=== PATIENT | female | born 1955 | race Two or more races ===

== ENCOUNTER 2025-04-20 15:30 | Inpatient (IN) | payer MEDICARE, OTHER ==
[~2025-04-20] VITALS: Ht 165.1 cm; Wt 121.8 kg
[2025-04-20 16:12] LABS: BASOPHILS # (AUTO) 0.1 K/UL (0.0-0.2); BASOPHILS % (AUTO) 0.7 % (0.0-2.0); EOSINOPHILS # (AUTO) 0.1 K/uL (0.0-0.7); EOSINOPHILS % (AUTO) 0.8 % (0.0-7.0); HEMATOCRIT 35.6 % (31.2-41.9); HEMOGLOBIN 11.9 g/dL (10.9-14.3); LYMPHOCYTES # (AUTO) 1.9 K/uL (0.8-4.8); MEAN CORPUSCULAR HGB CONC 34 g/dL (32.3-35.6); MEAN CORPUSCULAR VOLUME 95.2 fL (75.5-95.3); MONOCYTES # (AUTO) 0.5 K/uL (0.1-1.30); NEUTROPHILS # (AUTO) 7.5 K/uL (1.8-8.9); NEUTROPHILS % (AUTO) 74.5 % (38.5-71.5); PLATELET COUNT (AUTO) 256 K/uL (179-408); RED BLOOD CELL COUNT(AUTO) 3.74 MIL/uL (3.63-4.92); RED CELL DISTRIBUTION WIDTH 15.3 % (12.3-17.7); WHITE BLOOD COUNT (AUTO) 10.1 K/uL (3.8-11.8)
[2025-04-20 16:14] LABS: DIFFERENTIAL COMMENT 1
[2025-04-20 16:16] LABS: CALCIUM 8.6 mg/dL (8.5-10.1); CARBON DIOXIDE 23 mmol/L (21-32); CHLORIDE 99 mmol/L (98-107); CREATININE 3.6 mg/dL (0.6-1.3); GLUCOSE 199 mg/dL (74-106); POTASSIUM 3.6 mmol/L (3.5-5.1); SODIUM SERUM 135 mmol/L (136-145); UREA NITROGEN, BLOOD 19 mg/dL (7-18)
[2025-04-20 16:19] LABS: *BILIRUBIN,URIN 1+ (NEGATIVE); *BLOOD, URINE 3+ (NEGATIVE); *COLOR,URINE YELLOW (YELLOW); *KETONES,URINE 1+ (NEGATIVE); *PROTEIN,URINE 3+ (NEGATIVE); *UROBILINOGEN,URINE 0.2 E.U./dl (NORMAL); LEUKOCYTE ESTERASE ,URINE 3+ (NEGATIVE); NITRITE, URINE NEGATIVE (NEGATIVE); UGLUCOSE NEGATIVE (NEGATIVE)
[2025-04-20 16:20] LABS: *CLARITY,URINE TURBID (CLEAR)
[2025-04-20 16:22] LABS: ALANINE AMINOTRANSFERASE 7 U/L (14-59); ALBUMIN 2.7 g/dL (3.4-5.0); ALKALINE PHOSPHATASE 112 U/L (50-136); ASPARTATE AMINOTRANSFERASE 17 U/L (15-37); BILIRUBIN,DIRECT 0.1 mg/dL (0.0-0.2); BILIRUBIN,TOTAL 0.2 mg/dL (0.2-1.0); LIPASE 31 U/L (16-77); TOTAL PROTEIN, SERUM 6.9 g/dL (6.4-8.2)
[2025-04-20] MEDS ORDERED: INSU100I26 SQ (16:45)
[2025-04-20] MEDS ORDERED: CRAN425C6 PO (16:45)
[2025-04-20] MEDS ORDERED: FERR220S16 PO (16:45)
[2025-04-20] MEDS ORDERED: LORA5SOL38 PO (16:45)
[2025-04-20] MEDS ORDERED: AMLO2.5T4 PO (16:45)
[2025-04-20] MEDS ORDERED: DIPH25TA27 PO (16:45)
[2025-04-20] MEDS ORDERED: LOPE2TAB25 PO (16:45)
[2025-04-20] MEDS ORDERED: FOLI1TAB27 PO (16:45)
[2025-04-20] MEDS ORDERED: OMEG100036 PO (16:45)
[2025-04-20] MEDS ORDERED: ASPI81TA31 PO (16:45)
[2025-04-20] MEDS ORDERED: MIDO2.5T PO (16:45)
[2025-04-20] MEDS ORDERED: CALC0.253 PO (16:45)
[2025-04-20] MEDS ORDERED: HEPA500034 SUBCUT (16:45)
[2025-04-20] MEDS ORDERED: ONDANSETRON 4 MG/2 ML VIAL ONE ×2 (16:46→18:33)
[2025-04-20 16:47] LABS: BACTERIA,URINE MANY /HPF (NONE SEEN); WBC,URINE TNTC /HPF (0-3)
[2025-04-20] MEDS ORDERED: HYDROMORPHONE 1 MG/1 ML DISP.SYRIN ONE (16:47)
[2025-04-20 16:48] LABS: SQUAMOUS EPITHELIAL CELL,UR FEW /HPF (NONE SEEN)
[2025-04-20] MEDS: HYDROMORPHONE 1 MG/1 ML DISP.SYRIN IV ONE (16:50)
[2025-04-20] MEDS: ONDANSETRON 4 MG/2 ML VIAL IV ONE ×2 (16:50→18:33)
[2025-04-20] MEDS ORDERED: ONDA4TAB5 PO (17:42)
[2025-04-20] MEDS ORDERED: TRAZ-182 PO (17:42)
[2025-04-20] MEDS ORDERED: CINA30TA2 PO (17:42)
[2025-04-20] MEDS ORDERED: SEVE800T8 PO (17:42)
[2025-04-20] MEDS ORDERED: NITR0.4T48 SL (17:42)
[2025-04-20] MEDS ORDERED: INSU100V SUBCUT ×2 (17:42)
[2025-04-20] MEDS ORDERED: PHEN-704 PO (17:42)
[2025-04-20] MEDS ORDERED: PANT20TA2 PO (17:42)
[2025-04-20] MEDS ORDERED: MAG30ORA PO (17:42)
[2025-04-20] MEDS ORDERED: FOLI0.8T23 PO (17:42)
[2025-04-20] MEDS ORDERED: AMIN30LI2 PO (17:42)
[2025-04-20] MEDS ORDERED: CEFTRIAXONE /D5W 50ML IVPB **ER PYXIS IV ONE (18:36)
[2025-04-20] MEDS: CEFTRIAXONE 1 G in IV DEXTROSE 5% 50 ML IV ONE (18:42)
[2025-04-20] MEDS ORDERED: DEXTROSE 50% 50 ML DISP.SYRIN IV PRN (20:15)
[2025-04-20 21:45] VITALS: BP 112/44; TEMP 97.9; O2SAT 95
[2025-04-20] MEDS: ONDANSETRON 4 MG/2 ML VIAL IV PRN (21:48)
[2025-04-20] MEDS: HYDROMORPHONE 1 MG/1 ML DISP.SYRIN IV PRN (21:49)
[2025-04-20] MEDS: HEPARIN SODIUM,PORCINE 5,000 UNITS/ML VIAL SQ SCH (21:51)
[2025-04-20] MEDS: PANTOPRAZOLE SODIUM 40 MG VIAL IV SCH (22:08)
[2025-04-20] MEDS: IV D5/ 0.9% NACL 1,000 ML IV PRN (22:17)
[2025-04-21] VITALS (7 sets, daily range): BP systolic 90–126; BP diastolic 33–63; TEMP 97–98.3; O2SAT 95–98
[2025-04-21] MEDS: BLOOD SUGAR DIAGNOSTIC 1 EACH STRIP VI SCH ×2 (00:28→11:50)
[2025-04-21] MEDS: INSULIN REGULAR, HUMAN 1000 UNIT/10 ML VIAL SQ PRN ×2 (00:39→11:45)
[2025-04-21] MEDS: HYDROMORPHONE 1 MG/1 ML DISP.SYRIN IVP ONE (00:59)
[2025-04-21 06:47] LABS: BASOPHILS % (AUTO) 0.4 % (0.0-2.0); EOSINOPHILS # (AUTO) 0.1 K/uL (0.0-0.7); EOSINOPHILS % (AUTO) 1.1 % (0.0-7.0); HEMATOCRIT 34.8 % (31.2-41.9); HEMOGLOBIN 11.7 g/dL (10.9-14.3); LYMPHOCYTES # (AUTO) 1.7 K/uL (0.8-4.8); LYMPHOCYTES % (AUTO) 21.9 % (20.5-51.5); MEAN CORPUSCULAR HEMOGLOBIN 32.9 uug (24.7-32.8); MEAN CORPUSCULAR HGB CONC 34 g/dL (32.3-35.6); MONOCYTES # (AUTO) 0.5 K/uL (0.1-1.30); MONOCYTES % (AUTO) 6.4 % (0.0-11.0); NEUTROPHILS # (AUTO) 5.6 K/uL (1.8-8.9); NEUTROPHILS % (AUTO) 70.2 % (38.5-71.5); PLATELET COUNT (AUTO) 249 K/uL (179-408); RED BLOOD CELL COUNT(AUTO) 3.55 MIL/uL (3.63-4.92); RED CELL DISTRIBUTION WIDTH 15.3 % (12.3-17.7)
[2025-04-21 07:00] LABS: DIFFERENTIAL COMMENT 1
[2025-04-21 07:02] LABS: CALCIUM 8.3 mg/dL (8.5-10.1); CARBON DIOXIDE 26 mmol/L (21-32); CHLORIDE 99 mmol/L (98-107); GLUCOSE 187 mg/dL (74-106); MAGNESIUM 2.1 mg/dL (1.8-2.4); PHOSPHOROUS 4.6 mg/dL (2.5-4.9); SODIUM SERUM 136 mmol/L (136-145); UREA NITROGEN, BLOOD 23 mg/dL (7-18)
[2025-04-21] MEDS ORDERED: MIDODRINE HCL 2.5 MG TABLET PO PRN (09:00)
[2025-04-21] MEDS ORDERED: diphenhydrAMINE 25 MG CAP PO PRN (09:15)
[2025-04-21] MEDS ORDERED: HOME MED MISCELLANEOUS XX SCH ×2 (09:15)
[2025-04-21] MEDS ORDERED: NITROGLYCERIN 0.4 MG/TAB BOTTLE SL PRN (09:15)
[2025-04-21] MEDS ORDERED: LOPERAMIDE HCL 2 MG CAPSULE PO PRN (09:15)
[2025-04-21] MEDS ORDERED: DEXTROSE 50% 50 ML DISP.SYRIN IV PRN (09:30)
[2025-04-21] MEDS: METOCLOPRAMIDE HCL 10 MG/2 ML VIAL IV PRN (09:31)
[2025-04-21] MEDS ORDERED: FERR-56 PO (09:45)
[2025-04-21] MEDS: PHENAZOPYRIDINE HCL 100 MG TABLET PO PRN (11:56)
[2025-04-21] MEDS: ONDANSETRON HCL 4 MG TABLET PO PRN (12:08)
[2025-04-21] MEDS: SEVELAMER CARBONATE 800 MG TABLET PO SCH (12:08)
[2025-04-21] MEDS: FOLIC ACID/VITAMIN B COMP W-C TABLET PO SCH (12:09)
[2025-04-21] MEDS: ASPIRIN 81 MG TAB.CHEW PO SCH (12:09)
[2025-04-21] MEDS: FERROUS SULFATE 325 MG TABEC PO SCH (12:09)
[2025-04-21] MEDS: FOLIC ACID 1 MG TABLET PO SCH (12:10)
[2025-04-21] MEDS: PROTEIN SUPPLEMENT (PROSTAT) 30 ML LIQUID PO SCH (12:35)
[2025-04-21] MEDS: CEFTRIAXONE 1 G in IV DEXTROSE 5% 50 ML IV SCH (17:33)
[2025-04-21] MEDS: OXYCODONE/APAP 5-325 MG TABLET PO ONE (22:19)
[2025-04-22 06:03] VITALS: BP 98/42; TEMP 97.9; O2SAT 98
[2025-04-22] MEDS: PANTOPRAZOLE SODIUM 40 MG TABLET.DR PO SCH (06:36)
[2025-04-22 07:34] VITALS: BP 90/30; TEMP 98.1; O2SAT 97
[2025-04-22] MEDS: MIDODRINE HCL 5 MG TABLET PO PRN (08:26)
[2025-04-22] MEDS: LORATADINE 10 MG TABLET PO SCH (08:26)
[2025-04-22] MEDS: AMLODIPINE 2.5 MG TABLET PO SCH (08:28)
[2025-04-22] MEDS ORDERED: INSULIN REGULAR, HUMAN 1000 UNIT/10 ML VIAL SQ PRN (09:15)
[2025-04-22] MEDS ORDERED: DEXTROSE 50% 50 ML DISP.SYRIN IV PRN ×2 (09:15→10:15)
[2025-04-22] MEDS: CALCITRIOL 0.25 MCG CAPSULE PO SCH (09:18)
[2025-04-22] MEDS: INSULIN GLARGINE,HUM 300 UNITS/3 ML CARTRIDGE SQ SCH (09:21)
[2025-04-22] MEDS: CINACALCET HCL 30 MG TABLET PO SCH (09:22)
[2025-04-22] MEDS ORDERED: BLOOD SUGAR DIAGNOSTIC 1 EACH STRIP VI SCH (11:30)
[2025-04-22 11:35] VITALS: BP 93/45; TEMP 98.6; O2SAT 99
[2025-04-22] MEDS: DOCUSATE SODIUM 100 MG CAPSULE PO SCH (11:45)
[2025-04-22] MEDS: BLOOD SUGAR DIAGNOSTIC 1 EACH STRIP VI SCH (11:48)
[2025-04-22] MEDS: diphenhydrAMINE 25 MG CAP PO PRN (11:51)
[2025-04-22] MEDS: INSULIN REGULAR, HUMAN 1000 UNIT/10 ML VIAL SQ PRN (11:58)
[2025-04-22 16:00] VITALS: BP 92/30; TEMP 98.1; O2SAT 97
[2025-04-22 19:40] VITALS: BP 92/34; TEMP 99; O2SAT 96
[2025-04-22] MEDS: TRAZODONE 50 MG TABLET PO SCH (20:35)
[2025-04-22] MEDS: SENNOSIDES 1 TABLET PO SCH (20:35)
[2025-04-23] VITALS (8 sets, daily range): BP systolic 79–96; BP diastolic 29–61; TEMP 98.3–98.9; O2SAT 92–97
[2025-04-23] MEDS: HYDROMORPHONE 1 MG/1 ML DISP.SYRIN IV PRN (04:15)
[2025-04-23] MEDS: METOCLOPRAMIDE HCL 10 MG TABLET PO PRN (05:33)
[2025-04-23] MEDS ORDERED: MECLIZINE HCL 25 MG TABLET PO PRN (08:15)
[2025-04-23] MEDS: METOCLOPRAMIDE HCL 10 MG/2 ML VIAL IV PRN (08:24)
[2025-04-23] MEDS: REMEDY ESSENTIAL ZINC PASTE 113 GM TP PRN (08:33)
[2025-04-23] MEDS: BISACODYL 10 MG SUPP.RECT RC ONE (09:17)
[2025-04-23] MEDS ORDERED: ACETAMINOPHEN 325 MG TABLET PO PRN (20:30)
[2025-04-24] MEDS ORDERED: MIDODRINE HCL 2.5 MG TABLET PO ONE (01:00)
[2025-04-24] MEDS: MIDODRINE HCL 5 MG TABLET PO ONE (01:32)
[2025-04-24 06:06] VITALS: BP 112/90; TEMP 99.4; O2SAT 96
[2025-04-24 08:00] VITALS: BP 94/37; TEMP 98.7; O2SAT 96
[2025-04-24 11:00] VITALS: BP 89/36; TEMP 98.6; O2SAT 96
[2025-04-24] MEDS: MIDODRINE HCL 2.5 MG TABLET PO SCH (15:41)
[2025-04-24 16:00] VITALS: BP 93/38; TEMP 98; O2SAT 95
[2025-04-24] MEDS ORDERED: AMIKACIN 500 MG in IV DEXTROSE 5% 100 ML IV SCH (16:00)
[2025-04-24] MEDS ORDERED: COLISTIMETHATE SODIUM 150 MG in IV DEXTROSE 5% 100 ML IV SCH (18:00)
[2025-04-24] MEDS: COLISTIMETHATE SODIUM 75 MG in IV DEXTROSE 5% 100 ML IV SCH (18:31)
[2025-04-24 19:40] VITALS: BP 105/88; TEMP 98; O2SAT 97
[2025-04-25 02:08] LABS: HEPATITIS B SURFACE AG Negative (Negative)
[2025-04-25] MEDS ORDERED: PHENAZOPYRIDINE HCL 100 MG TABLET PO PRN (05:45)
[2025-04-25 06:06] VITALS: BP 101/37; TEMP 97.6; O2SAT 96
[2025-04-25 06:57] LABS: BASOPHILS % (AUTO) 0.2 % (0.0-2.0); EOSINOPHILS # (AUTO) 0.9 K/uL (0.0-0.7); EOSINOPHILS % (AUTO) 6.7 % (0.0-7.0); HEMATOCRIT 32.1 % (31.2-41.9); HEMOGLOBIN 10.8 g/dL (10.9-14.3); LYMPHOCYTES # (AUTO) 2.4 K/uL (0.8-4.8); LYMPHOCYTES % (AUTO) 18.8 % (20.5-51.5); MEAN CORPUSCULAR HEMOGLOBIN 32.9 uug (24.7-32.8); MEAN CORPUSCULAR HGB CONC 34 g/dL (32.3-35.6); MEAN CORPUSCULAR VOLUME 97.5 fL (75.5-95.3); MONOCYTES # (AUTO) 0.7 K/uL (0.1-1.30); MONOCYTES % (AUTO) 5.2 % (0.0-11.0); NEUTROPHILS % (AUTO) 69.1 % (38.5-71.5); PLATELET COUNT (AUTO) 223 K/uL (179-408); RED BLOOD CELL COUNT(AUTO) 3.29 MIL/uL (3.63-4.92); RED CELL DISTRIBUTION WIDTH 15.1 % (12.3-17.7)
[2025-04-25 07:07] LABS: CALCIUM 7.6 mg/dL (8.5-10.1); CARBON DIOXIDE 24 mmol/L (21-32); CHLORIDE 94 mmol/L (98-107); CREATININE 5.7 mg/dL (0.6-1.3); DIFFERENTIAL COMMENT 1; GLUCOSE 88 mg/dL (74-106); MAGNESIUM 1.7 mg/dL (1.8-2.4); PHOSPHOROUS 3.5 mg/dL (2.5-4.9); POTASSIUM 4.2 mmol/L (3.5-5.1); SODIUM SERUM 128 mmol/L (136-145); UREA NITROGEN, BLOOD 41 mg/dL (7-18)
[2025-04-25 11:06] VITALS: BP 102/42; TEMP 98.4; O2SAT 95
[2025-04-25 15:12] VITALS: BP 110/56; TEMP 98.2; O2SAT 97
[2025-04-25] MEDS ORDERED: ALBUMIN HUMAN 25% 100 ML IV PRN (16:15)
[2025-04-25] MEDS: ALBUMIN HUMAN 25% 100 ML IV PRN (16:15)
[2025-04-25] MEDS: ACETAMINOPHEN 325 MG TABLET PO PRN (17:29)
[2025-04-25 20:30] VITALS: BP 103/20; TEMP 98.5; O2SAT 98
[2025-04-25] MEDS: COLISTIMETHATE SODIUM IV SCH (21:13)
[2025-04-25] MEDS: DEXTROSE 5% IV SCH (21:13)
[2025-04-26] VITALS (7 sets, daily range): BP systolic 88–108; BP diastolic 37–44; TEMP 97.8–98.4; O2SAT 95–100
[2025-04-26 07:24] LABS: BASOPHILS % (AUTO) 0.3 % (0.0-2.0); EOSINOPHILS # (AUTO) 0.8 K/uL (0.0-0.7); EOSINOPHILS % (AUTO) 8.4 % (0.0-7.0); HEMATOCRIT 33.5 % (31.2-41.9); LYMPHOCYTES # (AUTO) 1.8 K/uL (0.8-4.8); LYMPHOCYTES % (AUTO) 20.2 % (20.5-51.5); MEAN CORPUSCULAR HEMOGLOBIN 32.3 uug (24.7-32.8); MEAN CORPUSCULAR HGB CONC 33 g/dL (32.3-35.6); MONOCYTES # (AUTO) 0.4 K/uL (0.1-1.30); MONOCYTES % (AUTO) 4.8 % (0.0-11.0); NEUTROPHILS # (AUTO) 5.9 K/uL (1.8-8.9); NEUTROPHILS % (AUTO) 66.3 % (38.5-71.5); PLATELET COUNT (AUTO) 200 K/uL (179-408); RED BLOOD CELL COUNT(AUTO) 3.42 MIL/uL (3.63-4.92); RED CELL DISTRIBUTION WIDTH 14.8 % (12.3-17.7); WHITE BLOOD COUNT (AUTO) 8.9 K/uL (3.8-11.8)
[2025-04-26 07:27] LABS: CARBON DIOXIDE 26 mmol/L (21-32); CHLORIDE 95 mmol/L (98-107); CREATININE 4.2 mg/dL (0.6-1.3); GLUCOSE 87 mg/dL (74-106); MAGNESIUM 1.8 mg/dL (1.8-2.4); PHOSPHOROUS 2.9 mg/dL (2.5-4.9); POTASSIUM 3.8 mmol/L (3.5-5.1); SODIUM SERUM 130 mmol/L (136-145); UREA NITROGEN, BLOOD 27 mg/dL (7-18)
[2025-04-26] MEDS: HYDROCODONE/APAP 5-325MG TABLET PO PRN (11:36)
[2025-04-26] MEDS: METOCLOPRAMIDE HCL 10 MG/2 ML VIAL IV PRN (15:46)
[2025-04-26] MEDS: MIDODRINE HCL 5 MG TABLET PO ONE (17:54)
[2025-04-27 05:55] VITALS: BP 96/24; TEMP 97.9; O2SAT 96
[2025-04-27] MEDS: MIDODRINE HCL 5 MG TABLET PO SCH (06:35)
[2025-04-27 07:28] LABS: BASOPHILS % (AUTO) 0.5 % (0.0-2.0); EOSINOPHILS # (AUTO) 0.8 K/uL (0.0-0.7); EOSINOPHILS % (AUTO) 9.2 % (0.0-7.0); HEMATOCRIT 32.7 % (31.2-41.9); LYMPHOCYTES # (AUTO) 2.4 K/uL (0.8-4.8); LYMPHOCYTES % (AUTO) 28.3 % (20.5-51.5); MEAN CORPUSCULAR HEMOGLOBIN 32.6 uug (24.7-32.8); MEAN CORPUSCULAR HGB CONC 34 g/dL (32.3-35.6); MEAN CORPUSCULAR VOLUME 97.3 fL (75.5-95.3); MONOCYTES # (AUTO) 0.5 K/uL (0.1-1.30); MONOCYTES % (AUTO) 5.7 % (0.0-11.0); NEUTROPHILS # (AUTO) 4.9 K/uL (1.8-8.9); NEUTROPHILS % (AUTO) 56.3 % (38.5-71.5); PLATELET COUNT (AUTO) 230 K/uL (179-408); RED BLOOD CELL COUNT(AUTO) 3.36 MIL/uL (3.63-4.92); RED CELL DISTRIBUTION WIDTH 14.9 % (12.3-17.7); WHITE BLOOD COUNT (AUTO) 8.6 K/uL (3.8-11.8)
[2025-04-27 07:39] LABS: DIFFERENTIAL COMMENT 1
[2025-04-27 07:57] LABS: CALCIUM 7.9 mg/dL (8.5-10.1); CARBON DIOXIDE 25 mmol/L (21-32); CHLORIDE 94 mmol/L (98-107); CREATININE 4.2 mg/dL (0.6-1.3); GLUCOSE 62 mg/dL (74-106); MAGNESIUM 1.9 mg/dL (1.8-2.4); PHOSPHOROUS 3.6 mg/dL (2.5-4.9); POTASSIUM 3.9 mmol/L (3.5-5.1); SODIUM SERUM 129 mmol/L (136-145); UREA NITROGEN, BLOOD 31 mg/dL (7-18)
[2025-04-27] MEDS ORDERED: DOCU-141 PO (10:15)
[2025-04-27] MEDS ORDERED: MIDO5TAB4 PO (10:15)
[2025-04-27] MEDS ORDERED: SENN-175 PO (10:15)
[2025-04-27] MEDS ORDERED: MIDODRINE HCL 5 MG TABLET PO ONE (10:30)
[2025-04-27 12:00] VITALS: BP 120/43
[2025-04-27] MEDS ORDERED: MIDODRINE HCL 5 MG TABLET PO SCH (14:45)
[2025-04-27 14:50] VITALS: BP 85/39
[2025-04-27] MEDS: MIDODRINE HCL 5 MG TABLET PO ONE (14:50)
[2025-04-27] MEDS ORDERED: MIDO10TA PO (15:58)
[2025-04-28] MEDS ORDERED: MIDODRINE HCL 5 MG TABLET PO SCH ×2 (06:00)
== END 2025-04-27 15:15 | DRG 393 ==
LOC: ER 15:53 → TELE3 20:38 → MEDSURG3 04-23 08:58
PROVIDERS: ADMIT Nurse Practitioner Acute Care; ATTEND Nurse Practitioner Acute Care
PROC: 5A1D70Z Performance of Urinary Filtration, Intermittent, Less than 6 Hours Per Day (ICD-10-PCS; principal; 2025-04-21)
PROC: 05HD33Z Insertion of Infusion Device into Right Cephalic Vein, Percutaneous Approach (ICD-10-PCS; 2025-04-22)
DX: K43.6 Other and unspecified ventral hernia with obstruction, without gangrene (principal); N18.6 End stage renal disease; I12.0 Hypertensive chronic kidney disease with stage 5 chronic kidney disease or end stage renal disease; N39.0 Urinary tract infection, site not specified; Z16.24 Resistance to multiple antibiotics; D68.59 Other primary thrombophilia; Z68.42 Body mass index [BMI] 45.0-49.9, adult; B96.1 Klebsiella pneumoniae [K. pneumoniae] as the cause of diseases classified elsewhere; E66.01 Morbid (severe) obesity due to excess calories; Z22.359 Carrier of Enterobacterales, unspecified; K57.30 Diverticulosis of large intestine without perforation or abscess without bleeding; Z74.09 Other reduced mobility; Z85.528 Personal history of other malignant neoplasm of kidney; Z86.73 Personal history of transient ischemic attack (TIA), and cerebral infarction without residual deficits; Z79.4 Long term (current) use of insulin; Z90.5 Acquired absence of kidney; Z90.49 Acquired absence of other specified parts of digestive tract; Z99.2 Dependence on renal dialysis; K21.9 Gastro-esophageal reflux disease without esophagitis; H81.13 Benign paroxysmal vertigo, bilateral; H54.62 Unqualified visual loss, left eye, normal vision right eye
CPT/HCPCS: 36415; 51702; 70450; 71045; 83605; 83690; 83735; 84100; 84484; 85025; 85730; 86850; 86900; 86901; 87040; 87077; 87086; 87340; A4606; A4663; G0378; J0696; J0770; J1171; J1644; J1815; J2405; J2470; J2765; J7040; J7042; J8597; P9047; Q0162; Q0163